=== PATIENT | male | born 1965 | race Two or more races ===

== ENCOUNTER 2023-02-07 20:13 | Emergency (ER) | payer SELFPAY ==
[2023-02-07 20:28] VITALS: BMI 28.5
[2023-02-07] MEDS ORDERED: ASPIRIN 81 MG CHEWABLE TABLETS PO ONE (20:38)
[2023-02-07] MEDS ORDERED: ASPIRIN 81 MG CHEWABLE TABLETS ONE (20:39)
[2023-02-07 20:53] LABS: HEMATOCRIT 49.9 % (35.4-49); HEMOGLOBIN 17.2 G/dL (11.7-16.9); MCH 32.7 pg (25.7-33.7); MCHC 34.5 g/dl (32.0-35.9); MEAN CELL VOLUME 94.8 fl (80-96); MEAN PLT VOLUME 8.4 fl (7.5-11.1); PLATELET COUNT 164.4 10^3/uL (134-434); RBC 5.26 10^6/uL (4.00-5.60); RDW 13.3 % (11.9-15.9); WHITE BLOOD COUNT 9.3 10^3/uL (4.0-10.8)
[2023-02-07] MEDS ORDERED: NITROGLYCERIN SUBLINGUAL 1/150 0.4 MG TAB ONE (21:02)
[2023-02-07] MEDS ORDERED: NITROGLYCERIN SUBLINGUAL 1/200 0.3 MG BTL SL ONE (21:02)
[2023-02-07] MEDS ORDERED: morphine CARPU-JECT 4 MG/1 ML DISP.SYRIN IVPUSH ONE (21:05)
[2023-02-07] MEDS ORDERED: morphine SULFATE 4 MG/ML VIAL ONE (21:09)
[2023-02-07 21:11] LABS: ALBUMIN 4.4 g/dl (3.4-5.0); CALCIUM 10.1 mg/dl (8.5-10.1); PHOSPHOROUS 3.14 (2.5-4.9); POTASSIUM 3.9 mmol/L (3.5-5.1); SGOT/AST 26.9 U/L (15-37); SGPT/ALT 31.9 U/L (7-52); TOT PROT 7.5 g/dl (6.4-8.2)
[2023-02-07 21:11] LABS: INR 0.95 (0.83-1.09)
[2023-02-07 21:13] LABS: ACTIVATED PTT 28.9 SECONDS (25.2-36.5)
[2023-02-07 21:33] VITALS: BP 122/59; PULSE 89; RESP 16; TEMP 98
[2023-02-07 23:23] LABS: BILIRUBIN,TOTAL 0.3 mg/dL (0.2-1)
== END 2023-02-07 21:30 | disposition short-term general hospital (02) ==
LOC: FER 20:13
PROC: 3E033GC Introduction of Other Therapeutic Substance into Peripheral Vein, Percutaneous Approach (ICD-10-PCS; principal; 2023-02-07)
DX: R07.89 Other chest pain (principal); I21.3 ST elevation (STEMI) myocardial infarction of unspecified site; R61 Generalized hyperhidrosis; Z20.822 Contact with and (suspected) exposure to COVID-19
CPT/HCPCS: 36415; 71045-TC-FY; 80053; 83735; 84100; 84484; 85027; 85610; 85730; 86850; 86900; 86901; 87635; 93005; 99285-25